=== PATIENT | female | born 1995 | race African-American/Black ===

== ENCOUNTER 2023-12-27 02:51 | Emergency (ER) | payer OTHER ==
[~2023-12-27] VITALS: Ht 170.2 cm; Wt 78.9 kg
[~2023-12-27 02:51] MED LIST: SULF1TAB48 PO
[2023-12-27 03:23] VITALS: BP 124/72; O2SAT 98
[2024-01-06] MEDS ORDERED: CLOT15CR5 TP (20:51)
== END 2023-12-27 03:23 | disposition home or self-care (01) ==
LOC: ER 02:53
DX: Z13.9 Encounter for screening, unspecified (principal); J45.909 Unspecified asthma, uncomplicated; Z79.899 Other long term (current) drug therapy
CPT/HCPCS: A4606; A4663

== ENCOUNTER 2024-07-26 16:33 | Emergency (ER) | payer MEDICAID ==
[~2024-07-26] VITALS: Ht 170.2 cm; Wt 81.6 kg
[~2024-07-26 16:33] MED LIST changes: +CLOT15CR5 TP
[2024-07-26] MEDS: IV NORMAL SALINE 1000 ML BAG IV ONE (17:31)
[2024-07-26] MEDS ORDERED: diphenhydrAMINE 50 MG/1 ML VIAL ONE (17:35)
[2024-07-26] MEDS ORDERED: ACETAMINOPHEN 500 MG TABLET ONE (17:35)
[2024-07-26] MEDS ORDERED: KETOROLAC TROMETHAMINE 15 MG INJ ONE (17:36)
[2024-07-26] MEDS ORDERED: METOCLOPRAMIDE HCL 10 MG/2 ML VIAL ONE (17:36)
[2024-07-26] MEDS: ACETAMINOPHEN 500 MG TABLET PO ONE (17:45)
[2024-07-26] MEDS: METOCLOPRAMIDE HCL 10 MG/2 ML VIAL IV ONE (17:47)
[2024-07-26] MEDS: diphenhydrAMINE 50 MG/1 ML VIAL IVP ONE (17:49)
[2024-07-26] MEDS: KETOROLAC TROMETHAMINE 15 MG INJ IVP ONE (17:50)
[2024-07-26] MEDS ORDERED: IBUP-1955 PO (18:09)
[2024-07-26 18:37] VITALS: BP 128/70; TEMP 97.5; O2SAT 99
== END 2024-07-26 18:37 | disposition home or self-care (01) ==
LOC: ER 16:33
DX: R51.9 Headache, unspecified (principal); J45.909 Unspecified asthma, uncomplicated; Z79.899 Other long term (current) drug therapy
CPT/HCPCS: 99284; 96374; 96375; 96361; J1200; J1885; J2765; J7040; A4606; A4663; A9150

== ENCOUNTER 2024-08-20 06:04 | Emergency (ER) | payer MEDICAID ==
[~2024-08-20] VITALS: Ht 170.2 cm; Wt 79.8 kg
[~2024-08-20 06:04] MED LIST changes: +IBUP-1955 PO
[2024-08-20] MEDS ORDERED: NEOMY/BACITRA/POLYMYXIN B OINT UD PACKET TP ONE (07:14)
[2024-08-20] MEDS: NEOMY/BACITRA/POLYMYXIN B OINT UD PACKET TP ONE (07:27)
[2024-08-20] MEDS ORDERED: TDAP DIPH,PERTUSS,TET VAC/PF 0.5 ML DISP.SYRIN IM ONE (07:28)
[2024-08-20] MEDS: TDAP DIPH,PERTUSS,TET VAC/PF 0.5 ML DISP.SYRIN IM ONE (07:35)
[2024-08-20 07:38] VITALS: BP 133/80; TEMP 97.1; O2SAT 100
== END 2024-08-20 07:38 | disposition home or self-care (01) ==
LOC: ER 06:06
DX: S90.411A Abrasion, right great toe, initial encounter (principal); J45.909 Unspecified asthma, uncomplicated; Z79.899 Other long term (current) drug therapy; X58.XXXA Exposure to other specified factors, initial encounter; Y93.01 Activity, walking, marching and hiking; Y92.89 Other specified places as the place of occurrence of the external cause; Y99.8 Other external cause status
CPT/HCPCS: 90715; A4606; A4663

== ENCOUNTER 2025-05-28 20:04 | Emergency (ER) | payer MEDICAID ==
[~2025-05-28] VITALS: Ht 170.2 cm; Wt 81.6 kg
[2025-05-28 20:06] VITALS: BP 116/77
[2025-05-28 21:04] VITALS: BP 116/77; TEMP 98; O2SAT 98
== END 2025-05-28 21:04 | disposition home or self-care (01) ==
LOC: ER 20:05
DX: T16.1XXA Foreign body in right ear, initial encounter (principal); J45.909 Unspecified asthma, uncomplicated; Z87.2 Personal history of diseases of the skin and subcutaneous tissue; Z91.011 Allergy to milk products; W44.9XXA Unspecified foreign body entering into or through a natural orifice, initial encounter; Y93.89 Activity, other specified; Y92.89 Other specified places as the place of occurrence of the external cause; Y99.8 Other external cause status
CPT/HCPCS: A4606; A4663